=== PATIENT | male | born 1955 | race Two or more races ===

== ENCOUNTER 2020-10-08 08:45 | Emergency (ER) | payer MEDICAID ==
[~2020-10-08] VITALS: Ht 172.7 cm; Wt 95.3 kg
[2020-10-08 12:44] VITALS: BP 134/84
== END 2020-10-08 12:48 | disposition home or self-care (01) ==
LOC: ER 08:45
DX: T82.898A Other specified complication of vascular prosthetic devices, implants and grafts, initial encounter (principal); I10 Essential (primary) hypertension; E78.5 Hyperlipidemia, unspecified
CPT/HCPCS: 71045

== ENCOUNTER 2020-10-29 22:02 | Inpatient (IN) | payer MEDICAID ==
[~2020-10-29] VITALS: Ht 172.7 cm; Wt 97.6 kg
[2020-10-30 01:55] LABS: Basophils # (auto) 0 10 ^3/uL (0-0.2); Basophils % (auto) 0.5 % (0.0-2.0); Eosinophils # (auto) 0.2 10 ^3/uL (0-0.8); Eosinophils % (auto) 1.8 % (0.0-7.0); Hematocrit 40.2 % (41.0-53.0); Hemoglobin 14.2 g/dL (13.5-17.5); Lymphocytes % (auto) 22.3 % (10.0-50.0); Mean Corpuscular Hemoglobin 33.1 pg (28.0-32.0); Mean Corpuscular Hgb Conc. 35.4 g/dL (32.0-36.0); Mean Corpuscular Volume 93.6 fL (80.0-100.0); Monocytes # (auto) 0.8 10 ^3/uL (0-1.3); Monocytes % (auto) 9.2 % (0.0-12.0); Neutrophils # (auto) 5.9 10 ^3/uL (1.6-8.6); Neutrophils % (auto) 66.2 % (37.0-80.0); White Blood Cell 8.9 10^3/uL (4.4-10.8)
[2020-10-30 02:09] LABS: INR 0.93 (0.9-1.15)
[2020-10-30 02:18] LABS: Albumin 3.4 g/dL (3.4-5.0); Calcium 8.6 mg/dL (8.5-10.1); Potassium 3.5 mmol/L (3.5-5.1)
[2020-10-30 02:23] LABS: Bilirubin, Total 0.3 mg/dL (0.2-1.0); Total Protein 7.6 g/dL (6.4-8.2)
[2020-10-30] MEDS ORDERED: ONDANSETRON HCL 4 MG/2 ML VIAL IV PRN (05:15)
[2020-10-30] MEDS ORDERED: hydrALAZINE HCL 20 MG/ML VL IV PRN (05:15)
[2020-10-30] MEDS ORDERED: MORPHINE SULFATE 4 MG/ML SYR/VIAL IV PRN (05:15)
[2020-10-30] MEDS: CLINDAMYCIN 600MG IV 50 ML IV SCH ×3 (05:44→22:07)
[2020-10-30 08:39] LABS: Urine Bacteria NONE SEEN /hpf (None Seen); Urine Blood 1+ /uL (Negative); Urine Mucus FEW (None Seen); Urine WBC 1 /hpf (0 - 3)
[2020-10-30] MEDS ORDERED: LORazepam 2MG/ML-1ML VIAL IV ONE (08:45)
[2020-10-30] MEDS ORDERED: ACETAMINOPHEN 325 MG TAB PO ONE (08:45)
[2020-10-30] MEDS: PANTOPRAZOLE 40 MG/10 ML VIAL INJ IV SCH (10:22)
[2020-10-30] MEDS ORDERED: LISI20TA28 PO (10:45)
[2020-10-30] MEDS ORDERED: NICO21DI37 TOP (10:45)
[2020-10-30] MEDS ORDERED: LORA-483 PO (10:45)
[2020-10-30] MEDS ORDERED: ceFAZolin 1GM/50ML 50 ML IV ONE ×2 (11:29→12:06)
[2020-10-30] MEDS ORDERED: ceFAZolin 1GM VL ONE (11:47)
[2020-10-30] MEDS ORDERED: ROPIVACAINE 0.5% (5MG/ML) 20ML AMPULE IJ ONE (11:47)
[2020-10-30] MEDS ORDERED: fentaNYL CITRATE 100 MCG/2 ML VL ONE (12:09)
[2020-10-30] MEDS ORDERED: SODIUM CHLORIDE LOCK 10 ML ONE (12:09)
[2020-10-30] MEDS ORDERED: ONDANSETRON HCL 4 MG/2 ML VIAL ONE (12:09)
[2020-10-30] MEDS ORDERED: MIDAZOLAM HCL 1MG/1ML-2 ML VIAL ONE (12:09)
[2020-10-30] MEDS ORDERED: PROPOFOL 10 MG/ML 20 ML IV ONE (12:09)
[2020-10-30 13:00] VITALS: BP 145/95
[2020-10-30 17:00] VITALS: BP 132/76
[2020-10-30 22:00] VITALS: BP 150/96
[2020-10-31 05:00] VITALS: BP 121/88
[2020-10-31] MEDS: CLINDAMYCIN 600MG IV 50 ML IV SCH ×3 (05:43→22:01)
[2020-10-31 06:19] LABS: Basophils # (auto) 0 10 ^3/uL (0-0.2); Basophils % (auto) 0.4 % (0.0-2.0); Eosinophils # (auto) 0.2 10 ^3/uL (0-0.8); Eosinophils % (auto) 3.8 % (0.0-7.0); Hematocrit 38.6 % (41.0-53.0); Hemoglobin 13.7 g/dL (13.5-17.5); Lymphocytes # (auto) 1.5 10 ^3/uL (0.4-5.4); Mean Corpuscular Hemoglobin 32.8 pg (28.0-32.0); Mean Corpuscular Hgb Conc. 35.5 g/dL (32.0-36.0); Mean Corpuscular Volume 92.5 fL (80.0-100.0); Monocytes # (auto) 0.5 10 ^3/uL (0-1.3); Monocytes % (auto) 8.4 % (0.0-12.0); Neutrophils # (auto) 4.1 10 ^3/uL (1.6-8.6); Neutrophils % (auto) 63.4 % (37.0-80.0); Red Blood Cells 4.18 10^6/uL (4.5-5.90); Red Cell Distribution Width 12.7 % (11.8-14.3); White Blood Cell 6.4 10^3/uL (4.4-10.8)
[2020-10-31 07:28] LABS: Potassium 3.8 mmol/L (3.5-5.1)
[2020-10-31 07:36] LABS: BUN/Creatinine Ratio 15.9; Calcium 8.2 mg/dL (8.5-10.1)
[2020-10-31 08:53] VITALS: BP 118/87
[2020-10-31] MEDS: LISINOPRIL 20 MG TAB PO SCH (11:38)
[2020-10-31] MEDS: PANTOPRAZOLE 40 MG/10 ML VIAL INJ IV SCH (11:38)
[2020-10-31 12:55] VITALS: BP 123/81
[2020-10-31] MEDS ORDERED: cefTRIAXone 1GM/50ML D5W 50 ML IV ONE (16:30)
[2020-10-31 16:47] VITALS: BP 126/74
[2020-10-31 22:00] VITALS: BP 123/72
[2020-11-01 05:00] VITALS: BP 119/75
[2020-11-01] MEDS: CLINDAMYCIN 600MG IV 50 ML IV SCH ×2 (06:09→13:27)
[2020-11-01 08:39] VITALS: BP 136/81
[2020-11-01] MEDS: cefTRIAXone 1GM/50ML D5W 50 ML IV SCH (11:23)
[2020-11-01] MEDS: LISINOPRIL 20 MG TAB PO SCH (11:23)
[2020-11-01 12:46] VITALS: BP 144/77
[2020-11-01 16:41] VITALS: BP 152/76
[2020-11-01 22:00] VITALS: BP 150/80
[2020-11-02] MEDS: CLINDAMYCIN 600MG IV 50 ML IV SCH ×4 (00:20→23:32)
[2020-11-02 05:00] VITALS: BP 164/94
[2020-11-02 08:41] VITALS: BP 164/87
[2020-11-02] MEDS: cefTRIAXone 1GM/50ML D5W 50 ML IV SCH (08:42)
[2020-11-02] MEDS: LISINOPRIL 20 MG TAB PO SCH (08:43)
[2020-11-02 12:44] VITALS: BP 131/73
[2020-11-02 16:46] VITALS: BP 145/78
[2020-11-02 22:00] VITALS: BP 160/75
[2020-11-03 05:00] VITALS: BP 143/72
[2020-11-03] MEDS: CLINDAMYCIN 600MG IV 50 ML IV SCH (06:44)
[2020-11-03 09:17] VITALS: BP 136/79
[2020-11-03] MEDS ORDERED: LINEZOLID 600MG TABLET PO SCH (10:00)
[2020-11-03] MEDS ORDERED: ERTAPENEM SOD INJ 1 GM in SODIUM CHL 0.9% 50 ML IV SCH (10:00)
[2020-11-03] MEDS: LISINOPRIL 20 MG TAB PO SCH (10:09)
[2020-11-03 12:41] VITALS: BP 164/80
[2020-11-03 12:49] VITALS: BP 164/80
== END 2020-11-03 17:01 | disposition home health service (06) | DRG 361 ==
LOC: ER 22:03 → OVERFLOW 10-30 05:14 → CENTRAL 10-30 09:10
PROVIDERS: ADMIT Nurse Practitioner; ATTEND Family Medicine
PROC: 0HRKXK3 Replacement of Right Lower Leg Skin with Nonautologous Tissue Substitute, Full Thickness, External Approach (ICD-10-PCS; principal; 2020-10-30 12:53)
DX: S91.301A Unspecified open wound, right foot, initial encounter (principal); L97.818 Non-pressure chronic ulcer of other part of right lower leg with other specified severity; B96.5 Pseudomonas (aeruginosa) (mallei) (pseudomallei) as the cause of diseases classified elsewhere; I10 Essential (primary) hypertension; F17.210 Nicotine dependence, cigarettes, uncomplicated; Z20.822 Contact with and (suspected) exposure to COVID-19; Z72.89 Other problems related to lifestyle; Y93.89 Activity, other specified; Y92.89 Other specified places as the place of occurrence of the external cause; Y99.8 Other external cause status
CPT/HCPCS: 36415; 71045; 73700; 80048; 80053; 81001; 83605; 85025; 85610; 85652; 85730; 86141; 86850; 86900; 86901; 87040; 87070; 87075; 87077; 87186; 87205; 87426; 93005; C9113; G0378; J0690; J0696; J1335; J2250; J2405; J2704; J3490

== ENCOUNTER 2020-12-11 14:20 | Inpatient (IN) | payer MEDICAID ==
[~2020-12-11] VITALS: Ht 172.7 cm; Wt 92.1 kg
[2020-12-11 15:46] LABS: Basophils # (auto) 0.1 10 ^3/uL (0-0.2); Eosinophils # (auto) 0.2 10 ^3/uL (0-0.8); Eosinophils % (auto) 2.5 % (0.0-7.0); Hematocrit 42.8 % (41.0-53.0); Hemoglobin 14.9 g/dL (13.5-17.5); Lymphocytes # (auto) 2.6 10 ^3/uL (0.4-5.4); Lymphocytes % (auto) 28.3 % (10.0-50.0); Mean Corpuscular Hgb Conc. 34.9 g/dL (32.0-36.0); Mean Corpuscular Volume 91.7 fL (80.0-100.0); Monocytes # (auto) 0.8 10 ^3/uL (0-1.3); Monocytes % (auto) 8.6 % (0.0-12.0); Neutrophils # (auto) 5.4 10 ^3/uL (1.6-8.6); Neutrophils % (auto) 59.6 % (37.0-80.0); Nucleated Red Blood Cells % 0.1 %; Red Blood Cells 4.67 10^6/uL (4.5-5.90); Red Cell Distribution Width 13.2 % (11.8-14.3); White Blood Cell 9.1 10^3/uL (4.4-10.8)
[2020-12-11 15:59] LABS: Albumin 3.6 g/dL (3.4-5.0); BUN/Creatinine Ratio 18.5; Calcium 8.9 mg/dL (8.5-10.1); Potassium 3.9 mmol/L (3.5-5.1)
[2020-12-11 16:02] LABS: Bilirubin, Total 0.4 mg/dL (0.2-1.0); Total Protein 8.1 g/dL (6.4-8.2)
[2020-12-11 20:18] LABS: INR 1.01 (0.9-1.15)
[2020-12-12] MEDS ORDERED: VANCOMYCIN 1GM/250ML 250 ML IV ONE (00:45)
[2020-12-12] MEDS ORDERED: PIPERACILLIN-TAZOB 3.375GM 100 ML IV ONE (00:45)
[2020-12-12] MEDS ORDERED: HYDROcodone-ACET 5/325MG TAB PO PRN (06:30)
[2020-12-12] MEDS ORDERED: cloNIDine HCL 0.1 MG TAB PO PRN (06:30)
[2020-12-12] MEDS ORDERED: ONDANSETRON HCL 4 MG/2 ML VIAL IV PRN (06:30)
[2020-12-12] MEDS ORDERED: MORPHINE SULFATE 4 MG/ML SYR/VIAL IV PRN (06:30)
[2020-12-12] MEDS ORDERED: DEXTROSE (50%) 50ML SYRG IV PRN (06:30)
[2020-12-12] MEDS: SODIUM CHLORIDE 0.9% 1,000 ML IV SCH ×2 (06:56→16:26)
[2020-12-12 09:00] VITALS: BP 110/82
[2020-12-12] MEDS ORDERED: cefTRIAXone 1GM/50ML D5W 50 ML IV SCH (09:00)
[2020-12-12] MEDS ORDERED: PANTOPRAZOLE 40 MG/10 ML VIAL INJ IV SCH (10:00)
[2020-12-12] MEDS ORDERED: LISINOPRIL 20 MG TAB PO SCH (10:00)
[2020-12-12] MEDS ORDERED: METOPROLOL SUCCINATE XL 50 MG TAB PO SCH (10:00)
[2020-12-12] MEDS: InsuLIN REG 1unit/0.01ml Soln (100units/ml) SC SCH ×2 (12:00→18:00)
[2020-12-12] MEDS: ACCU-CHEK COMFORT CURVE STRIP VI SCH ×2 (12:21→18:06)
[2020-12-12 13:00] VITALS: BP 128/92
[2020-12-12] MEDS ORDERED: PIPERACILLIN-TAZO 4.5GM 100 ML IV SCH (14:00)
[2020-12-12] MEDS ORDERED: CLINDAMYCIN 600MG IV 50 ML IV SCH (14:00)
[2020-12-12] MEDS ORDERED: hydrALAZINE HCL 20 MG/ML VL IV PRN (16:00)
[2020-12-12] MEDS ORDERED: VANCOMYCIN PER PHARMACY 0 MG IV SCH (16:00)
[2020-12-12] MEDS ORDERED: ASPI81CH49 PO (16:47)
[2020-12-12] MEDS ORDERED: ATOR20TA50 PO (16:47)
[2020-12-12] MEDS ORDERED: METO25TA93 PO (16:47)
[2020-12-12] MEDS ORDERED: LISI20TA28 PO (16:47)
[2020-12-12] MEDS ORDERED: ERTA1INJ (16:47)
[2020-12-12] MEDS: PIPERACILLIN-TAZO 4.5GM 100 ML IV SCH (16:49)
[2020-12-12 17:00] VITALS: BP 177/82
[2020-12-12] MEDS: VANCOMYCIN 1GM/250ML 250 ML IV SCH (18:06)
[2020-12-12 22:00] VITALS: BP 149/86
[2020-12-12] MEDS ORDERED: ATORVASTATIN 20 MG TAB PO SCH (22:00)
[2020-12-13] MEDS: ACCU-CHEK COMFORT CURVE STRIP VI SCH ×2 (00:59→05:31)
[2020-12-13] MEDS: InsuLIN REG 1unit/0.01ml Soln (100units/ml) SC SCH ×2 (01:00→05:26)
[2020-12-13] MEDS: PIPERACILLIN-TAZO 4.5GM 100 ML IV SCH (02:00)
[2020-12-13] MEDS: VANCOMYCIN 1GM/250ML 250 ML IV SCH (03:19)
[2020-12-13 05:00] VITALS: BP 146/75
[2020-12-13 06:30] LABS: Basophils # (auto) 0.1 10 ^3/uL (0-0.2); Basophils % (auto) 0.7 % (0.0-2.0); Eosinophils # (auto) 0.4 10 ^3/uL (0-0.8); Eosinophils % (auto) 5.7 % (0.0-7.0); Hemoglobin 14.7 g/dL (13.5-17.5); Lymphocytes # (auto) 1.8 10 ^3/uL (0.4-5.4); Lymphocytes % (auto) 23.3 % (10.0-50.0); Mean Corpuscular Hemoglobin 32.8 pg (28.0-32.0); Mean Corpuscular Hgb Conc. 35.8 g/dL (32.0-36.0); Mean Corpuscular Volume 91.5 fL (80.0-100.0); Monocytes # (auto) 0.7 10 ^3/uL (0-1.3); Monocytes % (auto) 8.6 % (0.0-12.0); Neutrophils # (auto) 4.7 10 ^3/uL (1.6-8.6); Neutrophils % (auto) 61.7 % (37.0-80.0); Nucleated Red Blood Cells % 0.1 %; Red Blood Cells 4.48 10^6/uL (4.5-5.90); Red Cell Distribution Width 13.3 % (11.8-14.3); White Blood Cell 7.6 10^3/uL (4.4-10.8)
[2020-12-13 06:55] LABS: BUN/Creatinine Ratio 14.5; Calcium 8.8 mg/dL (8.5-10.1); Magnesium 2.6 mg/dL (1.6-2.6); Potassium 3.7 mmol/L (3.5-5.1)
[2020-12-13 09:00] VITALS: BP 147/71
== END 2020-12-13 09:35 | disposition left against medical advice (07) | DRG 383 ==
LOC: ER 14:20 → OVERFLOW 12-12 06:19 → CENTRAL 12-12 14:46
PROVIDERS: ADMIT Nurse Practitioner; ATTEND Internal Medicine
DX: L03.115 Cellulitis of right lower limb (principal); M86.28 Subacute osteomyelitis, other site; E11.69 Type 2 diabetes mellitus with other specified complication; Z20.822 Contact with and (suspected) exposure to COVID-19; Z53.29 Procedure and treatment not carried out because of patient's decision for other reasons; E66.9 Obesity, unspecified; I10 Essential (primary) hypertension; F17.210 Nicotine dependence, cigarettes, uncomplicated; Z68.30 Body mass index [BMI] 30.0-30.9, adult
CPT/HCPCS: 36415; 73700; 80048; 80053; 82962; 83036; 83605; 83735; 85025; 85610; 87040; 87077; 87186; 87205; 87426; 96365; 96367; C9113; G0378; J0696; J1815; J2543; J3490

== ENCOUNTER 2023-05-24 01:16 | Emergency (ER) | payer MEDICAID ==
[~2023-05-24 01:16] MED LIST: ASPI81CH49 PO; ATOR20TA50 PO; ERTA1INJ; LISI20TA56 PO; METO25TA93 PO
== END 2023-05-24 01:20 | disposition left against medical advice (07) ==
LOC: ER 01:16
DX: R20.2 Paresthesia of skin (principal); Z53.21 Procedure and treatment not carried out due to patient leaving prior to being seen by health care provider

== ENCOUNTER 2023-11-12 09:09 | Inpatient (IN) | payer MEDICAID ==
[~2023-11-12] VITALS: Ht 177.8 cm; Wt 93.2 kg
[2023-11-12] VITALS (8 sets, daily range): BP systolic 86–122; BP diastolic 51–63; PULSE 66–108; RESP 16–28; TEMP 97.7–98.3; O2SAT 89–99
[2023-11-12] MEDS: SODIUM CHLORIDE 0.9% 1,000 ML IV ONE ×2 (11:34)
[2023-11-12] MEDS: ACETAMINOPHEN 325 MG TAB PO ONE (11:35)
[2023-11-12] MEDS: KETOROLAC TROMETH 30 MG/ML 1ML VIAL IV ONE (11:35)
[2023-11-12 11:37] LABS: Basophils # (auto) 0 10 ^3/uL (0-0.2); Basophils % (auto) 0.1 % (0.0-2.0); Eosinophils # (auto) 0 10 ^3/uL (0-0.8); Lymphocytes # (auto) 1.1 10 ^3/uL (0.4-5.4)
[2023-11-12 11:38] LABS: Lymphocytes % (auto) 8.3 % (10.0-50.0); Monocytes # (auto) 0.7 10 ^3/uL (0-1.3); Monocytes % (auto) 5.2 % (0.0-12.0); Neutrophils # (auto) 11.2 10 ^3/uL (1.6-8.6); Neutrophils % (auto) 86.4 % (37.0-80.0); Nucleated Red Blood Cells % 0.1 %; Red Blood Cells 4.58 10^6/uL (4.5-5.90); Red Cell Distribution Width 13.4 % (11.8-14.3)
[2023-11-12 11:45] LABS: Mean Corpuscular Hgb Conc. 36.5 g/dL (32.0-36.0)
[2023-11-12 11:50] LABS: INR 1.04 (0.9-1.15); Partial Thromboplastin Time 30.5 SEC (24.5-34.5)
[2023-11-12 11:55] LABS: Alanine Aminotransferase 21 U/L (7-40); Albumin 4.1 g/dL (3.2-4.8); Alkaline Phosphatase 89 U/L (46-116); Anion Gap 10 (5-15); Aspartate Aminotransferase 29 U/L (13-40); BUN/Creatinine Ratio 18.5 (10.0-20.0); Blood Alcohol < 3.0 mg/dL (<10); Blood Urea Nitrogen 20 mg/dL (9-23); Calcium 8.9 mg/dL (8.7-10.4); Carbon Dioxide 20 mmol/L (20-30); Chloride 96 mmol/L (98-107); Creatine Kinase IFCC 216 U/L (46-171); Glucose 152 mg/dL (74-106); Magnesium 1.8 mg/dL (1.6-2.6); Potassium 3.8 mmol/L (3.5-5.1); Sodium 126 mmol/L (136-145)
[2023-11-12] MEDS: IPRATROPIUM BROM 0.5 MG/2.5ML INH SOL NEB ONE (13:05)
[2023-11-12] MEDS: ALBUTEROL SULF 2.5 MG/0.5ML(0.5%) NEB SOLN NEB ONE (13:05)
[2023-11-12] MEDS: SODIUM CHLORIDE 0.9% 2,000 ML IV ONE (13:30)
[2023-11-12 13:45] LABS: Urine Bacteria FEW /hpf (None Seen); Urine Blood 3+ /uL (Negative); Urine Budding Yeast OCCASIONAL /hpf (None Seen); Urine Color Yellow (Yellow); Urine Hyaline Cast FEW /lpf (0 - 2); Urine Mucus FEW (None Seen); Urine Protein, UAD 3+ (Negative); Urine Specific Gravity 1.027 (1.001-1.035); Urine Urobilinogen Normal (Negative); Urine WBC 8 /hpf (0 - 3)
[2023-11-12 13:52] LABS: Urine Clarity Cloudy (Clear)
[2023-11-12] MEDS: PIPERACILLIN-TAZOB 3.375GM 100 ML IV ONE (14:00)
[2023-11-12] MEDS ORDERED: VANCOMYCIN PER PHARMACY 0 MG IV SCH ×2 (14:00→15:00)
[2023-11-12 14:15] LABS: COVID19 ANTIGEN SOFIA FIA NEGATIVE (NEGATIVE); Rapid Influenza A Negative (Negative); Rapid Influenza B Negative (Negative)
[2023-11-12] MEDS ORDERED: HYDROmorphone HCL 2 MG/ML VL/or syr IV PRN (14:15)
[2023-11-12] MEDS ORDERED: HYDROcodone-ACET 5/325MG TAB PO PRN (14:15)
[2023-11-12] MEDS ORDERED: ONDANSETRON HCL 4 MG/2 ML VIAL IV PRN (14:15)
[2023-11-12] MEDS: LACTATED RINGER'S 1,000 ML IV ONE ×2 (14:15→18:08)
[2023-11-12] MEDS ORDERED: DOCUSATE SOD 100 MG CAP PO PRN (14:15)
[2023-11-12] MEDS: VANCOMYCIN 1GM/200ML 200 ML IV ONE (14:59)
[2023-11-12] MEDS ORDERED: DEXTROSE (50%) 50ML SYRG IV PRN (15:00)
[2023-11-12] MEDS: AZTREONAM 1GM INJ 1 GM in D5W 5% 50 ML IV ONE (16:02)
[2023-11-12] MEDS: IOHEXOL 350 MG/ML 100ML IJ ONE (16:46)
[2023-11-12] MEDS: ACCU-CHEK COMFORT CURVE STRIP VI SCH (18:07)
[2023-11-12] MEDS: InsuLIN REG 1unit/0.01ml Soln (100units/ml) SC SCH (18:08)
[2023-11-12] MEDS: SODIUM CHLOR 0.9% PF (SALINE LOCK) 10ML VIAL/SYR IV SCH (21:43)
[2023-11-12] MEDS: ATORVASTATIN 20 MG TAB PO SCH (21:43)
[2023-11-12] MEDS: metroNIDAZOLE 500MG/100ML 100 ML IV SCH (21:43)
[2023-11-12] MEDS: AZTREONAM 1GM INJ 1 GM in D5W 5% 50 ML IV SCH (22:53)
[2023-11-13] VITALS (16 sets, daily range): BP systolic 109–149; BP diastolic 56–71; PULSE 71–90; RESP 16–22; TEMP 98–102; O2SAT 92–99
[2023-11-13] MEDS: VANCOMYCIN 1GM/200ML 200 ML IV SCH (03:58)
[2023-11-13] MEDS: ASPirin 81 mg TAB PO SCH (10:13)
[2023-11-13] MEDS: FLUCONAZOLE 100 MG TAB PO SCH (10:13)
[2023-11-13] MEDS: ENOXAPARIN SOD 40 MG/0.4 ML SYRINGE SC SCH (10:13)
[2023-11-13] MEDS: ACETAMINOPHEN 325 MG TAB PO PRN (12:40)
[2023-11-13] MEDS: cefTRIAXone 1GM/50ML D5W 50 ML IV ONE (14:58)
[2023-11-13] MEDS: LACTATED RINGER'S 1,000 ML IV SCH (14:59)
[2023-11-13] MEDS: ALBUTEROL SULF 2.5 MG/0.5ML(0.5%) NEB SOLN NEB SCH (15:27)
[2023-11-13] MEDS: FOLIC ACID 1 MG, MAGNESIUM SULF SDV 50% 8 MEQ, MULTIPLE VITAMIN 10 ML, THIAMINE INJ 100... INJ SCH (18:28)
[2023-11-14] VITALS (19 sets, daily range): BP systolic 108–142; BP diastolic 67–83; PULSE 58–89; RESP 14–20; TEMP 98.2–101.7; O2SAT 92–100
[2023-11-14] MEDS: cefTRIAXone 1GM/50ML D5W 50 ML IV SCH (08:30)
[2023-11-14] MEDS: VANCOMYCIN 1GM/200ML 200 ML IV SCH (12:05)
[2023-11-15] VITALS (19 sets, daily range): BP systolic 113–142; BP diastolic 65–78; PULSE 75–98; RESP 17–19; TEMP 97.5–98.9; O2SAT 92–100
[2023-11-15] MEDS: VANCOMYCIN 1,250 MG in D5W 5% 250 ML IV SCH (16:00)
[2023-11-16] VITALS (9 sets, daily range): BP systolic 106–139; BP diastolic 63–88; PULSE 72–88; RESP 16–18; TEMP 97.8–98.5; O2SAT 94–99
[2023-11-16 12:31] LABS: Basophils # (auto) 0 10 ^3/uL (0-0.2); Basophils % (auto) 0.4 % (0.0-2.0); Eosinophils # (auto) 0 10 ^3/uL (0-0.8); Eosinophils % (auto) 0.1 % (0.0-7.0); Hematocrit 35.5 % (41.0-53.0); Hemoglobin 12.6 g/dL (13.5-17.5); Lymphocytes % (auto) 12.5 % (10.0-50.0); Mean Corpuscular Hemoglobin 34.4 pg (28.0-32.0); Mean Corpuscular Hgb Conc. 35.6 g/dL (32.0-36.0); Mean Corpuscular Volume 96.8 fL (80.0-100.0); Monocytes % (auto) 12.4 % (0.0-12.0); Neutrophils # (auto) 6.2 10 ^3/uL (1.6-8.6); Neutrophils % (auto) 74.6 % (37.0-80.0); Red Blood Cells 3.67 10^6/uL (4.5-5.90); Red Cell Distribution Width 12.9 % (11.8-14.3); White Blood Cell 8.3 10^3/uL (4.4-10.8)
[2023-11-16] MEDS ORDERED: THIA100T13 PO (12:54)
[2023-11-16] MEDS ORDERED: FOLI-119 PO (12:54)
[2023-11-16] MEDS ORDERED: LEVO500T91 PO (12:54)
[2023-11-16] MEDS: VANCOMYCIN 1GM/200ML 0 ML IV ONE (14:59)
== END 2023-11-16 15:00 | disposition home or self-care (01) | DRG 720 ==
LOC: ER 09:09 → OVERFLOW 14:04 → WEST WING 17:06
PROVIDERS: ADMIT Family Medicine; ATTEND Family Medicine
DX: A41.9 Sepsis, unspecified organism (principal); N17.0 Acute kidney failure with tubular necrosis; M62.82 Rhabdomyolysis; L03.115 Cellulitis of right lower limb; N39.0 Urinary tract infection, site not specified; F17.210 Nicotine dependence, cigarettes, uncomplicated; S90.911A Unspecified superficial injury of right ankle, initial encounter; Z20.822 Contact with and (suspected) exposure to COVID-19; F10.10 Alcohol abuse, uncomplicated; I10 Essential (primary) hypertension; E11.65 Type 2 diabetes mellitus with hyperglycemia; Z88.0 Allergy status to penicillin; Z79.82 Long term (current) use of aspirin; Z79.899 Other long term (current) drug therapy; Z71.6 Tobacco abuse counseling; Y90.0 Blood alcohol level of less than 20 mg/100 ml
CPT/HCPCS: 36415; 71045; 73600; 73721; 75635; 80053; 80202; 80320; 81001; 82140; 82550; 82565; 82962; 83036; 83605; 83735; 83880; 84484; 85025; 85610; 85730; 86703; 87040; 87077; 87086; 87186; 87426; 87804; 93005; 94640; 96361; 96365; 96367; 96375; G0378; J1815; J1885; J3490; J7060